=== PATIENT | male | born 1965 | race Caucasian/White ===

== ENCOUNTER 2017-02-24 08:36 | Emergency (ER) | payer SELFPAY ==
[~2017-02-24] VITALS: Ht 180.3 cm; Wt 80.0 kg
[2017-02-24] MEDS ORDERED: NAPROSYN500 MG PO (09:21)
[2017-02-24] MEDS ORDERED: AMOXICILLIN500 MG PO (09:25)
[2017-02-24 09:36] VITALS: BP 151/79
== END 2017-02-24 09:36 | disposition home or self-care (01) | DRG 563 ==
LOC: ED 08:36
DX: S63.92XA Sprain of unspecified part of left wrist and hand, initial encounter (principal); S63.502A Unspecified sprain of left wrist, initial encounter; S50.861A Insect bite (nonvenomous) of right forearm, initial encounter; S50.862A Insect bite (nonvenomous) of left forearm, initial encounter; W19.XXXA Unspecified fall, initial encounter; Y92.009 Unspecified place in unspecified non-institutional (private) residence as the place of occurrence of the external cause; X58.XXXA Exposure to other specified factors, initial encounter

== ENCOUNTER 2017-04-16 17:10 | Emergency (ER) | payer SELFPAY ==
[~2017-04-16] VITALS: Ht 180.3 cm; Wt 86.0 kg
[~2017-04-16 17:10] MED LIST: AMOXICILLIN500 MG PO; NAPROSYN500 MG PO
[2017-04-16 20:25] VITALS: BP 127/92
== END 2017-04-16 20:25 | DRG 914 ==
LOC: ED 17:10
DX: S68.620A Partial traumatic transphalangeal amputation of right index finger, initial encounter (principal); W23.1XXA Caught, crushed, jammed, or pinched between stationary objects, initial encounter; Y93.89 Activity, other specified; Y92.007 Garden or yard of unspecified non-institutional (private) residence as the place of occurrence of the external cause